=== PATIENT | female | born 1945 | race Caucasian/White ===

== ENCOUNTER → 2016-09-23 | Outpatient (CLI) | payer MEDICARE, OTHER | LOC: KOH-I 10:00 | DX: N18.3 Chronic kidney disease, stage 3 (moderate) (principal); N27.1 Small kidney, bilateral | CPT/HCPCS: 76775 ==

== ENCOUNTER → 2016-09-23 | Outpatient (CLI) | payer MEDICARE, OTHER | LOC: LAB 11:07 | PROVIDERS: Internal Medicine Nephrology | DX: N18.3 Chronic kidney disease, stage 3 (moderate) (principal) | CPT/HCPCS: 80048; 82043; 82570 ==

== ENCOUNTER 2020-08-17 20:15 | Emergency (ER) | payer OTHER ==
[~2020-08-17 20:15] MED LIST: ALDACTONE25 MG PO; AMLODIPINE BES2.5 MG PO; ASPIRIN CHEWABL81 MG PO; DILTIAZEM ER240 M1 PO; SYNTHROID 50 M50 MCG PO
[2020-08-17 21:07] LABS: HEMOGLOBIN 14.3 gm/dl (12.3-15.3); RED BLOOD COUNT 4.66 M/UL (4.00-5.10); WHITE BLOOD COUNT 9.1 K/UL (4.5-11.0)
== END 2020-08-17 23:37 | disposition home or self-care (01) ==
LOC: ER1 20:15
PROVIDERS: Family Medicine
DX: K40.90 Unilateral inguinal hernia, without obstruction or gangrene, not specified as recurrent (principal); F17.200 Nicotine dependence, unspecified, uncomplicated; Z88.1 Allergy status to other antibiotic agents
CPT/HCPCS: 80053; 81001; 83690; 85025; 93005; 96374; 96375; 99284; J2270; J2405

== ENCOUNTER → 2020-11-26 | Outpatient (CLI) | payer OTHER ==
[~2020-11-26] MED LIST changes: +CLONIDINE HCL0.2 MG PO; +COLACE100 MG PO; +DILTIAZEM ER120 M1 PO; +ELDERBERRY-VIT1 EACH PO; +HYDROCODON-ACE1 EAC2 PO; +ZOFRAN4 MG PO; +ZOLOFT50 MG PO
== END ==
LOC: OPSV2 12:30
DX: Z01.818 Encounter for other preprocedural examination (principal); K40.20 Bilateral inguinal hernia, without obstruction or gangrene, not specified as recurrent; J43.9 Emphysema, unspecified; J84.9 Interstitial pulmonary disease, unspecified
CPT/HCPCS: 71046

== ENCOUNTER → 2020-11-28 | Day surgery (SDC) | payer OTHER | END | disposition home or self-care (01) | LOC: OR 06:03 | DX: K40.20 Bilateral inguinal hernia, without obstruction or gangrene, not specified as recurrent (principal); I10 Essential (primary) hypertension; F32.9 Major depressive disorder, single episode, unspecified; M81.0 Age-related osteoporosis without current pathological fracture; E03.9 Hypothyroidism, unspecified; Z88.1 Allergy status to other antibiotic agents; Z79.82 Long term (current) use of aspirin; Z79.899 Other long term (current) drug therapy | CPT/HCPCS: C1713; C1781; J1100; J1170; J2001; J2405; J2704; J2710; J3010; J7030; J7120 ==

== ENCOUNTER → 2021-08-28 | Day surgery (SDC) | payer OTHER ==
[~2021-08-28] MED LIST changes: +CALCIUM CARB; +CIPRO500 MG PO; +CYANOCOBAL1000 MCG/1 INJ; +FOSAMAX70 MG PO; +LEVOTHYROXINE50 MC1 PO; +MIRALAX 119 GR119 GM GT; +VIT
[2021-08-28 09:06] LABS: HEMOGLOBIN 13.2 gm/dl (12.3-15.3); RED BLOOD COUNT 4.31 M/UL (4.00-5.10); WHITE BLOOD COUNT 6.3 K/UL (4.5-11.0)
== END | disposition home or self-care (01) ==
LOC: OR 08:15
PROVIDERS: Obstetrics & Gynecology
DX: N32.81 Overactive bladder (principal); N39.41 Urge incontinence; Z20.822 Contact with and (suspected) exposure to COVID-19; I12.9 Hypertensive chronic kidney disease with stage 1 through stage 4 chronic kidney disease, or unspecified chronic kidney disease; N18.30 Chronic kidney disease, stage 3 unspecified; E03.9 Hypothyroidism, unspecified; F32.A Depression, unspecified; Z88.1 Allergy status to other antibiotic agents; Z79.82 Long term (current) use of aspirin; Z79.899 Other long term (current) drug therapy
CPT/HCPCS: 80053; 85025; C1769; J0585; J1100; J1580; J2001; J2405; J2704; J3010; J7120; U0002

== ENCOUNTER → 2021-12-06 | Outpatient (CLI) | payer OTHER ==
[~2021-12-06] MED LIST changes: +CALCIUM 600 MG1 EAC2 PO; +DILTIAZEM ER180 MG PO; +PEPCID40 MG PO
[2021-12-06 12:24] LABS: HEMOGLOBIN 14.1 gm/dl (12.3-15.3); RED BLOOD COUNT 4.56 M/UL (4.00-5.10); WHITE BLOOD COUNT 5.6 K/UL (4.5-11.0)
== END ==
LOC: OPSV2 11:00
PROVIDERS: Obstetrics & Gynecology
DX: Z01.818 Encounter for other preprocedural examination (principal); N32.81 Overactive bladder
CPT/HCPCS: 71046; 80053; 85025; 93005